=== PATIENT | female | born 1995 | race Caucasian/White ===

== ENCOUNTER 2018-03-20 19:25 | Emergency (ER) | payer SELFPAY ==
[~2018-03-20] VITALS: Ht 162.6 cm; Wt 54.5 kg
[2018-03-20 19:25] VITALS: BP 114/56
--- NOTE | 2018-03-20 21:04 | ECGEPIP ---
Stationary ECG Study [facility] - ED Test Date: 2018-03-20 Pat Name: ANISHA CRAVEN Department: Room: - Gender: F [employer]: ct : 1995 Requested By: MICKI SHEEHAN Order Number: [id number] Reading MD: Lanie Parker Measurements Intervals [place] Rate: 58 P: 48 ME: 132 QRS: 54 QRSD: 82 T: 35 QT: 394 QTc: 388 Interpretive Statements SINUS BRADYCARDIA WITH SINUS ARRHYTHMIA NO PRIOR FOR COMPARISON Electronically Signed On 03-20-2018 21:04:25 EST by Lanie Parker
== END 2018-03-20 20:21 | disposition left against medical advice (07) ==
LOC: M ED 19:25
DX: R07.9 Chest pain, unspecified (principal); R00.1 Bradycardia, unspecified; Z53.21 Procedure and treatment not carried out due to patient leaving prior to being seen by health care provider

== ENCOUNTER 2018-05-26 16:23 | Emergency (ER) | payer OTHER, SELFPAY ==
[~2018-05-26] VITALS: Ht 162.6 cm; Wt 54.5 kg
[2018-05-26 16:24] VITALS: BP 114/67
[2018-05-26] MEDS ORDERED: NORE0.353 (16:29)
[2018-05-26] MEDS ORDERED: MOBI4TAB PO ×2 (17:19→17:31)
[2018-05-26] MEDS ORDERED: CYCL10TA PO ×2 (17:19→17:31)
[2018-05-26] MEDS ORDERED: PRED20TA PO ×2 (17:19→17:31)
== END 2018-05-26 17:39 | disposition home or self-care (01) ==
LOC: M ED 16:23
DX: M25.512 Pain in left shoulder (principal)

== ENCOUNTER → 2018-06-09 | Outpatient (CLI) | payer OTHER ==
[~2018-06-09] MED LIST: CYCL10TA PO; MOBI4TAB PO; NORE0.353; PRED20TA PO
--- NOTE | 2018-06-09 07:09 | PFTRPT ---
Height: 64.00 Inches Weight: 120.00 Lbs BSA: 1.57 Diagnosis: JIMENES DATE OF PROCEDURE: 06/09/2018 ORDERED BY: AGUILA Pritchett Spirometry: Study of excellent technical quality. Forced vital capacity normal. FEV1 in proportion. Obstructive index is, therefore, normal. Flow Volume Loop: Expiratory limb of the flow volume loop is normal. Lung Volumes: Total lung capacity normal. Residual volume is in proportion. Diffusing Capacity: Diffusing capacity is reduced but is appropriate for alveolar volume. Hemoglobin: No hemoglobin available for correction. IMPRESSION: Diffusing capacity of unclear significance. Please correlate clinically. MTDD
== END ==
LOC: M CARPUL 06:25
PROVIDERS: ATTEND Clinical Nurse Specialist Psychiatric/Mental Health, Adult
DX: R06.2 Wheezing (principal)

== ENCOUNTER 2018-06-24 19:51 | Emergency (ER) | payer OTHER ==
[~2018-06-24] VITALS: Ht 162.6 cm; Wt 52.3 kg
[2018-06-24] MEDS ORDERED: KETOROLAC 60 MG/2 ML VIAL (J1885) IM ONE (22:00)
[2018-06-24 22:23] VITALS: BP 114/68
== END 2018-06-24 22:23 | disposition home or self-care (01) ==
LOC: M ED 19:51
DX: S29.011A Strain of muscle and tendon of front wall of thorax, initial encounter (principal); S13.4XXA Sprain of ligaments of cervical spine, initial encounter; V49.49XA Driver injured in collision with other motor vehicles in traffic accident, initial encounter; Y92.410 Unspecified street and highway as the place of occurrence of the external cause
CPT/HCPCS: 36415; 84702; 96372; 99283; J1885

== ENCOUNTER → 2018-06-27 | Outpatient (CLI) | payer OTHER ==
[~2018-06-27] MED LIST changes: +CONRAY-43 43% 50ML VIAL (Q9960) As Ordered ONE; +PROHANCE 279.3MG/ML 5ML VIAL (A9576) As Ordered ONE
--- NOTE | 2018-06-27 16:13 | REP ---
MR arthrography left shoulder: with pre and post intra-articular gadolinium enhanced saline injected imaging: History: No comparison radiographs. Pain in the left shoulder. Technique: The injection procedure is performed and dictated separately. Pre and post intra-articular gadolinium enhanced saline injected imaging is acquired. Imaging planes include axial, oblique coronal, oblique sagittal and ABER projection images. T1 T2-weighted scans are included with and without fat saturation. MRI findings: Pre injection MR imaging demonstrates a moderate size subacromial subdeltoid bursal effusion. Glenohumeral and acromioclavicular joints are normally aligned. Cortical and medullary bone signal intensity are normal. There is mild tendonitis tendinosis change in the distal supraspinatus tendon. No focal cuff tear is appreciated. Postinjection MR imaging demonstrates good filling and enhancement of the left glenohumeral articulation. No loose body is seen. No anterior labral tear is seen. There is however a linear cleft in the posterior labral cartilage consistent with a posterior labral tear. This is not displaced. The superior labrum shows some intra labral fluid at the anterior edge of the superior labrum. I cannot exclude a nondisplaced superior labral tear. This may be related to the posterior tear. ABER images show no evidence of anterior labral disruption. Impression: There is a nondisplaced tear in the posterior labral cartilage. There is a moderate size subacromial subdeltoid bursal effusion consistent with bursitis. There is no evidence of rotator cuff tear on pre or post injection imaging. Electronically Signed by Kris Borjas MD 06/27/2018 06:32 P
--- NOTE | 2018-06-27 17:27 | REP ---
Procedure: Left shoulder arthrogram The procedure was performed under the direct supervision of Dr. Borjas. History: Left shoulder pain The benefits and risks including but not limited to pain, infection, bleeding and anaphylaxis were explained to the patient and informed consent was obtained. Technique: The left glenohumeral joint space was localized using fluoroscopic guidance. The skin was prepped and draped in a sterile fashion. 1% lidocaine was used as a local anesthetic. Using fluoroscopic guidance a 22 gauge spinal needle was inserted and advanced into the joint. 0.5 ml of Conray 43 was injected to verify placement. 11 ml of a solution containing 20 ml of sterile saline and 0.15 ml of ProHance was injected into the joint. The needle was removed and the patient was taken to MRI for postprocedural imaging. The the patient tolerated the procedure well and there were no immediate complications. Less than 6 seconds of fluoro time was utilized for this procedure. Reviewed by RAGHAV Contreras 06/27/2018 01:24 P Electronically Signed by Kris Borjas MD 06/27/2018 05:17 P
== END ==
LOC: M RADPRO 06:26
PROVIDERS: ATTEND Physician Assistant
DX: M25.512 Pain in left shoulder (principal); M75.82 Other shoulder lesions, left shoulder; M75.52 Bursitis of left shoulder
CPT/HCPCS: 73223; 77002; A9576; Q9960

== ENCOUNTER 2019-07-29 07:19 | Day surgery (SDC) | payer OTHER ==
[~2019-07-29] VITALS: Ht 162.6 cm; Wt 50.3 kg
[~2019-07-29 07:19] MED LIST changes: +ACETAMINOPHEN 650 MG SUPP PR ONE; -CONRAY-43 43% 50ML VIAL (Q9960) As Ordered ONE; +CYCL-707 PO; -CYCL10TA PO; +GNP250TA9 PO; +LR 1,000 ML IV ONE; +NORA0.35 PO; -PROHANCE 279.3MG/ML 5ML VIAL (A9576) As Ordered ONE; +VITAD1000T PO
[2019-07-29] MEDS ORDERED: MULTCAP PO (07:47)
[2019-07-29 07:51] LABS: HEMATOCRIT 39.6 % (36.0-47.0); HEMOGLOBIN 13.8 g/dl (12.0-15.5); MEAN CORPUSCULAR HEMOGLOBIN 29.6 pg (27.0-33.0); MEAN CORPUSCULAR HGB CONC 34.8 g/dl (32.0-36.5); MEAN CORPUSCULAR VOLUME 84.8 fl (80.0-96.0); PLATELET COUNT, AUTOMATED 236 10^3/uL (150-450); RED BLOOD COUNT 4.67 10^6/uL (4.00-5.40); WHITE BLOOD COUNT 4.3 10^3/uL (4.0-10.0)
[2019-07-29 08:14] LABS: BLOOD UREA NITROGEN 11 MG/DL (7-18); CALCIUM LEVEL 8.8 MG/DL (8.5-10.1); CARBON DIOXIDE LEVEL 30 MEQ/L (21-32); CHLORIDE LEVEL 107 MEQ/L (98-107); CREATININE FOR GFR 0.94 MG/DL (0.55-1.30); GLOMERULAR FILTRATION RATE > 60.0 (>60); GLUCOSE, FASTING 81 MG/DL (70-100); HCG, SERUM QUANTITATIVE < 1.0 MIU/ML; POTASSIUM SERUM 3.6 MEQ/L (3.5-5.1); SODIUM LEVEL 142 MEQ/L (136-145)
[2019-07-29] MEDS ORDERED: METHYLENE BLUE 0.5% (5MG/ML) 10 ML AMP (PROVAYBLUE) As Ordered ONE (09:01)
[2019-07-29] MEDS ORDERED: BUPIVACAINE HCL 0.5% 10ML VIAL As Ordered ONE (09:01)
[2019-07-29] MEDS ORDERED: ACETAMINOPHEN 650 MG SUPP As Ordered ONE (09:01)
[2019-07-29] MEDS ORDERED: propofoL 200 MG/20 ML VIAL As Ordered ONE (09:01)
[2019-07-29] MEDS ORDERED: fentaNYL 100 MCG/2 ML INJECTION (J3010) As Ordered ONE ×2 (09:02→09:56)
[2019-07-29] MEDS ORDERED: dexameTHASONE 4 MG/ML 1ML VIAL (J1100 PER 1MG) As Ordered ONE (09:02)
[2019-07-29] MEDS ORDERED: ONDANSETRON 4MG/2ML VIAL As Ordered ONE (09:02)
[2019-07-29] MEDS ORDERED: LIDOCAINE 2% 100MG/5ML SDV (FOR ANES.) As Ordered ONE ×2 (09:02→09:58)
[2019-07-29] MEDS ORDERED: MIDAZOLAM INJ 2MG/2ML VIAL (J2250 PER 1MG) As Ordered ONE ×2 (09:02→11:51)
[2019-07-29] MEDS ORDERED: ROCURONIUM BROMIDE 50 MG/5 ML VIAL As Ordered ONE (09:02)
[2019-07-29] MEDS ORDERED: KETOROLAC 30 MG/ML 1ML VIAL IV PRN ×2 (10:45→16:00)
[2019-07-29] MEDS ORDERED: ALBUTEROL 6.7GM INHALER **FOR ANES. CART/OMNICELL ONLY As Ordered ONE (11:07)
[2019-07-29] MEDS ORDERED: fentaNYL 100 MCG/2 ML INJECTION (J3010) IV PRN (11:30)
[2019-07-29] MEDS ORDERED: oxyCODONE 5MG TAB PO PRN (11:30)
[2019-07-29] MEDS ORDERED: HYDROMORPHONE HCL 0.5 MG/ 0.5 ML SYRINGE (J1170 PER 1) IV PRN (11:30)
[2019-07-29] MEDS ORDERED: ONDANSETRON 4MG/2ML VIAL IV PRN (11:30)
[2019-07-29] MEDS ORDERED: LR 1,000 ML IV SCH (11:30)
[2019-07-29] MEDS ORDERED: SUGAMMADEX SODIUM 500 MG/5 ML VIAL (BRIDION) As Ordered ONE (11:48)
[2019-07-29] MEDS ORDERED: KETOROLAC 60MG 2ML VIAL As Ordered ONE (11:48)
[2019-07-29 12:59] VITALS: BP 131/79
--- NOTE | 2019-07-30 13:30 | RO ---
DATE OF PROCEDURE: 07/29/2019 PREOPERATIVE DIAGNOSIS: Right lower quadrant pain, right ovarian multicystic ovary. POSTOPERATIVE DIAGNOSIS: Normal ovaries right mid level pain, adhesions. OPERATION PROPOSED: Operative laparoscopy, excision of right ovarian cyst. OPERATION PERFORMED: Operative laparoscopy, release of adhesions on the right side. SURGEON: Dr. Bhakta CARD ASSEMBLER: Dr. Byrne for extraction, retraction, and visualization. ANESTHESIA: General, plus local anesthetic for intraperitoneal procedures. ESTIMATED BLOOD LOSS: Less than 20 mL. DESCRIPTION OF PROCEDURE: After adequate anesthesia, prepped and draped in lithotomy position, Elise catheter bladder draining clear urine. Acetaminophen suppository 1300 mg per rectum. No antibiotics required. The patient is COVID negative. Uterine elevator was placed in the cervical canal. Reprepping and draping a small subumbilical incision was made. Veress needle was applied. 2 liters of CO2 to flow rate of 14. Direct entry with a 0 degree 5 mm scope. No evidence of bleeding, hemorrhage or perforation. Panoramic review showed the right upper quadrant was normal. On the right side in the mid part of her abdomen where she was pointing are adhesive bands of bowel to the anterior abdominal wall, possibly physiologic, possibly trauma related. This is the area that the patient was of concern. Both ovaries appeared to be normal. We did not find any cystic areas as suggested by the ultrasound. Cul-de-sac was clear. Anterior and posterior russell were clean. Round ligaments were normal. Uterosacrals were normal. Two 5 mm ports were placed on the left side and using the LigaSure we took down the adhesive bands from previous inflammatory effect. We also looked at the appendix again and appeared to be quite normal, not inflammatory. It was is just a normal-size appendix. Etiology regarding these adhesive bands are unknown. She has not any history of inflammatory bowel disease, trauma or periappendicitis. With instrument and pad count correct, we deflated to zero pressure, removed the two lateral ports and removed the mainstem port. Closed up the incision sites with subcuticular #4-0, Dermabond to the skin. We then went ahead removed the uterine elevator, removed the Elise catheter. Again, instrument and pad count correct, and the patient was sent to recovery in good condition.
== END 2019-07-29 13:20 | disposition home or self-care (01) ==
LOC: M SDC 07:19
PROVIDERS: ATTEND Obstetrics & Gynecology
DX: N73.6 Female pelvic peritoneal adhesions (postinfective) (principal); K21.9 Gastro-esophageal reflux disease without esophagitis; F41.9 Anxiety disorder, unspecified; Z79.899 Other long term (current) drug therapy
CPT/HCPCS: 36415; 58660; 80048; 84702; 85027; J1100; J1885; J2250; J2405; J3010